=== PATIENT | male | born 1995 | race Caucasian/White ===

== ENCOUNTER 2017-03-04 08:12 | Outpatient (CLI) | payer SELFPAY ==
[2017-03-04 09:13] LABS: eGFR (African) > 60; eGFR (Non-African) > 60
== END 2017-03-04 08:13 ==
LOC: LAB 08:12
PROVIDERS: ATTEND Physician Assistant
DX: I10 Essential (primary) hypertension (principal)
CPT/HCPCS: 36415; 80053

== ENCOUNTER 2019-06-09 13:27 | Outpatient (CLI) | payer OTHER ==
[2019-06-09 13:46] LABS: BASOPHILS % 0.5 % (0.0-1.5); NEUTROPHILS # 7.4 # k/uL (1.4-7.7)
[2019-06-09 13:52] LABS: eGFR (Non-African) > 60
== END 2019-06-09 13:30 ==
LOC: LAB 13:27
PROVIDERS: ATTEND Family Medicine
DX: I10 Essential (primary) hypertension (principal)
CPT/HCPCS: 36415; 80053; 85025

== ENCOUNTER 2019-08-15 15:54 | Outpatient (CLI) | payer OTHER ==
[2019-08-15 16:05] LABS: BASOPHILS % 0.4 % (0.0-1.5); NEUTROPHILS # 10.3 # k/uL (1.4-7.7)
[2019-08-15 16:52] LABS: eGFR (Non-African) > 60
== END 2019-08-15 15:59 ==
LOC: LAB 15:54
PROVIDERS: ATTEND Nurse Practitioner Family
DX: R11.2 Nausea with vomiting, unspecified (principal)
CPT/HCPCS: 36415; 80053; 85025